=== PATIENT | female | born 1955 | race Caucasian/White ===

== ENCOUNTER → 2020-05-14 10:41 | Outpatient (CLI) | payer MEDICARE, MEDICAID, SELFPAY ==
[2020-05-14 10:01] VITALS: BMI 48.6
[2020-05-14 12:47] LABS: Calcium,Total 9.3 mg/dL (8.5-10.1)
[2020-05-14 12:49] LABS: PTHIN 75.9 pg/mL (18.4-80.1)
[2020-05-14 14:51] LABS: Thyroid Stim Hormone (TSH) 1.93 uIU/mL (0.358-3.74)
[2020-05-15 16:08] LABS: Alkaline Phosphatase, Serum 141 IU/L (39-117); Bone Fraction 59 % (14-68); Liver Fraction 24 % (18-85)
[2020-05-15 16:56] LABS: Intestinal Fraction 17 % (0-18)
== END ==
PROVIDERS: Referring Provider Internal Medicine Endocrinology, Diabetes & Metabolism; Visit Provider Internal Medicine Endocrinology, Diabetes & Metabolism
DX: E04.9 Nontoxic goiter, unspecified (principal); E55.9 Vitamin D deficiency, unspecified; R74.8 Abnormal levels of other serum enzymes
CPT/HCPCS: 36415; 82306; 82310; 83970; 84075; 84080; 84443